=== PATIENT | male | born 1985 | race Caucasian/White ===

== ENCOUNTER 2016-07-23 19:07 | Emergency (ER) | payer BC, OTHER ==
--- NOTE | 2016-07-23 20:04 | EDM.PDOC ---
ED HPI GENERAL MEDICAL PROBLEM - General Chief Complaint: Lower Extremity Injury/Pain Stated Complaint: PT HAS NUMBNESS IN LT LEG Time Seen by Provider: 07/23/16 19:20 Source of Information: Reports: Patient History Limitations: Reports: No Limitations - History of Present Illness INITIAL COMMENTS - FREE TEXT/NARRATIVE: History of present illness: [31-year-old male presenting with complaints of numbness on the top of his thigh that is intermittent as well as some pain in other areas of the left leg. Patient indicates it is limited to the left leg and he is concerned that he might have of blood clot the] Review of systems: As per history of present illness and below otherwise all systems reviewed and negative. Past medical history: As per history of present illness and as reviewed below otherwise noncontributory. Surgical history: As per history of present illness and as reviewed below otherwise noncontributory. Social history: No reported history of drug or alcohol abuse. Family history: As per history of present illness and as reviewed below otherwise noncontributory. Physical exam: HEENT: Atraumatic, normocephalic, pupils reactive, negative for conjunctival pallor or scleral icterus, mucous membranes moist, throat clear, neck supple, nontender, trachea midline. Lungs: Clear to auscultation, breath sounds equal bilaterally, chest nontender. Heart: S1S2, regular, negative for clicks, rubs, or JVD. Abdomen: Soft, nondistended, nontender. Negative for masses or hepatosplenomegaly. Negative for costovertebral tenderness. Pelvis: Stable nontender. Genitourinary: Deferred. Rectal: Deferred. Extremities: Atraumatic, negative for cords or calf pain. Neurovascular unremarkable. Neuro: Awake, alert, oriented. Cranial nerves II through XII unremarkable. Cerebellum unremarkable. Motor and sensory unremarkable throughout. Exam nonfocal. Global assessment is benign save subjective complaints as noted above. Legs are bilaterally equal and warmth, color, movement, and sensation. Patient denies any unusual sensations at this time such as numbness and or windows of paresthesia at this time. Patient acknowledges that the discomfort comes and goes and is self-limiting. Diagnostics: [X-ray of lumbar spine] Therapeutics: [] Impression: [Low back pain with some radiculopathy] Plan: [Steroids, muscle relaxer, anti-inflammatory followup with primary care] Definitive disposition and diagnosis as appropriate pending reevaluation and review of above. - Related Data Allergies Allergy/AdvReac Type Severity Reaction Status Date / Time No Known Allergies Allergy Verified 07/23/16 19:15 Home Meds: Home Meds Meloxicam 7.5 mg PO BID #30 tablet 07/23/16 [Rx] Orphenadrine [Norflex] 100 mg PO BID #28 tab.er 07/23/16 [Rx] methylPREDNISolone [Medrol] 4 mg PO DAILY #21 tab.ds.pk 07/23/16 [Rx] Past Medical History - Past Health History Medical/Surgical History: Denies Medical/Surgical History Psychiatric History: Reports: ADHD - Infectious Disease History Infectious Disease History: Reports: Chicken Pox Social & Family History - Family History Family Medical History: Noncontributory - Tobacco Use Smoking Status *Q: Never Smoker Second Hand Smoke Exposure: No - Caffeine Use Caffeine Use: Reports: Coffee Caffeine Use Comment: 2cups/day - Recreational Drug Use Recreational Drug Use: No Review of Systems - Review of Systems Review Of Systems: See Below (See history of present illness) Trauma Exam - Physical Exam Exam: See Below (See history of present illness) Course - Vital Signs Last Recorded V/S: Last Vital Signs Temp 36.6 C 07/23/16 19:12 Pulse 88 07/23/16 19:12 Resp 19 07/23/16 19:12 BP 131/86 07/23/16 19:12 Pulse Ox 98 07/23/16 19:12 - Orders/Labs/Meds Orders: Active Orders 24 hr Category Date Time Status Lumbar Spine 2 or 3V [CR] Stat Exams 07/23/16 19:25 Ordered Departure - Departure Time of Disposition: 20:02 Disposition: Home, Self-Care 01 Condition: good Clinical Impression: Acute back pain with sciatica - Discharge Information Prescriptions: Meloxicam 7.5 mg PO BID #30 tablet Orphenadrine [Norflex] 100 mg PO BID #28 tab.er methylPREDNISolone [Medrol] 4 mg PO DAILY #21 tab.ds.pk Forms: ED Department Discharge Additional Instructions: The following information is given to patients seen in the emergency department who are being discharged to home. This information is to outline your options for follow-up care. We provide all patients seen in our emergency department with a follow-up referral. The need for follow-up, as well as the timing and circumstances, are variable depending upon the specifics of your emergency department visit. If you don't have a primary care physician on staff, we will provide you with a referral. We always advise you to contact your personal physician following an emergency department visit to inform them of the circumstance of the visit and for follow-up with them and/or the need for any referrals to a consulting specialist. The emergency department will also refer you to a specialist when appropriate. This referral assures that you have the opportunity for follow-up care with a specialist. All of these measure are taken in an effort to provide you with optimal care, which includes your follow-up. Under all circumstances we always encourage you to contact your private physician who remains a resource for coordinating your care. When calling for follow-up care, please make the office aware that this follow-up is from your recent emergency room visit. If for any reason you are refused follow-up, please contact the [facility] Emergency Department at and asked to speak to the emergency department charge nurse. Take medication as directed Followup with primary care provider to discuss different interventions such as physical therapy as discussed Return to ED as needed as discussed - My Orders Last 24 Hours: My Active Orders 07/23/16 19:25 Lumbar Spine 2 or 3V [CR] Stat - Assessment/Plan Last 24 Hours: My Active Orders 07/23/16 19:25 Lumbar Spine 2 or 3V [CR] Stat
[2016-07-23 20:26] VITALS: BP 134/80
--- NOTE | 2016-07-25 15:03 | CR ---
EXAM DATE: 07/23/16 PATIENT'S AGE: 31 Patient: FABBY BULLARD Facility: [place], [place] Site . Site : 1985 Study: XRay Spine Lumbar [id number] 7:44:18 PM Ordering Physician: Doctor Pascual Final Report: HISTORY: Pain and left-sided numbness. Comparison: None. Findings: Vertebral body and disk space heights are preserved. No evidence for acute fracture or dislocation. Dictated by Janine Doll MD @ Jul 23 2016 7:54PM (Electronic Signature) Report Signed by Proxy. MICHELLE
== END 2016-07-23 20:08 | disposition home or self-care (01) ==
LOC: MW.ED 19:07
DX: M54.40 Lumbago with sciatica, unspecified side (principal); M54.16 Radiculopathy, lumbar region; Z79.899 Other long term (current) drug therapy
CPT/HCPCS: 72100; 72100-26; 99283; 99284

== ENCOUNTER 2024-04-19 17:12 | Emergency (ER) | payer BC, OTHER ==
[2024-04-19] MEDS: Diphtheria,Pertussis(Acell),Tetanus Vaccine 0.5 ML Syringe IM ONE (19:26)
[2024-04-19 20:25] VITALS: BP 142/100; PULSE 66
== END 2024-04-19 20:25 | disposition home or self-care (01) ==
LOC: MW.ED 17:12
DX: S02.2XXA Fracture of nasal bones, initial encounter for closed fracture (principal); S09.90XA Unspecified injury of head, initial encounter; Z79.899 Other long term (current) drug therapy; Z75.8 Other problems related to medical facilities and other health care; W22.8XXA Striking against or struck by other objects, initial encounter
CPT/HCPCS: 70450; 70450-26; 70486; 70486-26; 72125; 72125-26; 73030-26-LT; 73030-LT; 90715; 99283; 99284